=== PATIENT | male | born 1995 | race Caucasian/White ===

== ENCOUNTER 2017-06-26 17:20 | Emergency (ER) | payer SELFPAY ==
[2017-06-26 17:21] VITALS: BP 168/93; PULSE 106; RESP 12; TEMP 98.2; O2SAT 100
--- NOTE | 2017-06-26 17:51 | PD ---
HPI Chief Complaint: Lump, Cyst, Hernia Time Seen by Provider: 17:50 Travel History International Travel<30 days: No Contact w/Intl Traveler<30days: No Traveled to known affect area: No History of Present Illness HPI 21-year-old male who recently moved from was constant presents requesting a cyst on his scalp to be removed. He reports that it has been present for 3 months. It is mildly tender to palpation. Denies drainage, trauma, fevers or chills. No other complaints. History Social History Alcohol Use: Yes Tobacco Use: Yes Review of Systems General / Constitutional: No: Fever, Chills Skin: Positive Other (scalp soft tissue swelling) Physical Exam Narrative GENERAL: Well-nourished male in no acute distress SKIN: Warm and dry. There is a 1 cm small cystic lesion on the left occipital scalp which is not tender or erythematous HEAD: Atraumatic. Normocephalic. EYES: Pupils equal and round. No scleral icterus. No injection or drainage. ENT: No nasal bleeding or discharge. Mucous membranes pink and moist. NECK: Trachea midline. No JVD. Data Data Last Documented VS Vital Signs Date Time Temp Pulse Resp B/P (MAP) Pulse Ox O2 Delivery O2 Flow Rate FiO2 06/26/17 17:21 98.2 106 12 168/93 (118) 100 MDM Medical Screen Exam Complete: Yes Emergency Medical Condition: No Narrative Course A medical screening exam was performed: At the time of evaluation the presenting medical condition was determined not to be of an emergent nature. The patient was given the option of receiving additional care, but declined. Patient was given options for additional community resources from which to obtain care. The Patient Has Been advised to seek medical attention for their presenting complaint. The patient has been advised to return to the ER at any time if an emergent condition develops. Primary Impression: Encounter for medical screening examination Martinez Saab Jun 26, 2017 17:51
== END 2017-06-26 18:00 | disposition left against medical advice (07) ==
LOC: NEPK 17:20
DX: L72.8 Other follicular cysts of the skin and subcutaneous tissue (principal)
CPT/HCPCS: 99281

== ENCOUNTER 2017-09-06 21:25 | Emergency (ER) | payer SELFPAY ==
[~2017-09-06] VITALS: Ht 175.3 cm; Wt 77.3 kg
[2017-09-06 21:27] VITALS: BP 146/80; PULSE 63; RESP 16; TEMP 98.2; O2SAT 97
--- NOTE | 2017-09-06 22:20 | PD ---
HPI Chief Complaint: GI Complaint Time Seen by Provider: 22:01 Travel History International Travel<30 days: No Contact w/Intl Traveler<30days: No Traveled to known affect area: No History of Present Illness HPI 21-year-old otherwise healthy male presents to the emergency room for evaluation of fever, chills, nausea, vomiting, and diarrhea for the past 5 days. He has not actually taken his temperature but states he feels freezing and at the same time his swelling. Patient states she has not been able to keep anything down, even small sips of water and Gatorade. He denies any abdominal pain, chest pain, or shortness of breath. He has associated cough and sore throat. Occasionally he sees blood in his vomit. This morning he coughed up a large chunk of bloody sputum. [facility] Social History Alcohol Use: Yes Tobacco Use: Yes Allergies-Medications (Allergen,Severity, Reaction): Coded Allergies: No Known Allergies (Unverified , 09/06/17) Reported Meds & Prescriptions Reported Meds & Active Scripts Active No Active Prescriptions or Reported Medications Review of Systems Except as stated in HPI: all other systems reviewed are Neg Physical Exam Narrative GENERAL: Well-nourished, well-developed male in no acute distress. Afebrile. Ambulatory. SKIN: Focused skin assessment warm/dry. HEAD: Normocephalic. EYES: No scleral icterus. No injection or drainage. ENT: Mucosa pink and moist. Significant erythema of the pharynx without edema or exudates. No uvular edema. No uvular, palatal, or tonsillar deviation. Airway patent. Nasal turbinates appear normal without nasal blood, purulent drainage or septal hematoma. NECK: Supple, trachea midline. No JVD or lymphadenopathy. CARDIOVASCULAR: Regular rate and rhythm without murmurs, gallops, or rubs. RESPIRATORY: Breath sounds equal bilaterally. No accessory muscle use. GASTROINTESTINAL: Abdomen soft, non-tender, nondistended. Data Data Last Documented VS Vital Signs Date Time Temp Pulse Resp B/P (MAP) Pulse Ox O2 Delivery O2 Flow Rate FiO2 09/06/17 21:27 98.2 63 16 146/80 (102) 97 Room Air Orders Orders Chest, Pa & Lat (09/06/17 ) Influenzae A/B Antigen (09/06/17 22:16) Group A Rapid Strep Screen (09/06/17 22:16) Sodium Chlor 0.9% 1000 Ml Inj (Ns 1000 M (09/06/17 22:30) Ondansetron Inj (Zofran Inj) (09/06/17 22:30) Complete Blood Count With Diff (09/06/17 22:16) Comprehensive Metabolic Panel (09/06/17 22:16) Labs Laboratory Tests Test 09/06/17 22:20 White Blood Count 6.7 TH/MM3 Red Blood Count 5.48 MIL/MM3 Hemoglobin 16.1 GM/DL Hematocrit 46.7 % Mean Corpuscular Volume 85.3 FL Mean Corpuscular Hemoglobin 29.4 PG Mean Corpuscular Hemoglobin Concent 34.4 % Red Cell Distribution Width 12.6 % Platelet Count 191 TH/MM3 Mean Platelet Volume 7.9 FL Neutrophils (%) (Auto) 65.1 % Lymphocytes (%) (Auto) 21.8 % Monocytes (%) (Auto) 12.8 % Eosinophils (%) (Auto) 0.0 % Basophils (%) (Auto) 0.3 % Neutrophils # (Auto) 4.4 TH/MM3 Lymphocytes # (Auto) 1.5 TH/MM3 Monocytes # (Auto) 0.9 TH/MM3 Eosinophils # (Auto) 0.0 TH/MM3 Basophils # (Auto) 0.0 TH/MM3 CBC Comment DIFF FINAL Differential Comment MDM Medical Decision Making Medical Screen Exam Complete: Yes Emergency Medical Condition: Yes Medical Record Reviewed: Yes Differential Diagnosis URI, pneumonia, influenza, Janell-Martinez tear, gastroenteritis, dehydration, electrolyte abnormality Narrative Course 21-year-old male presents to the emergency room for evaluation of nausea, vomiting, diarrhea, cough, sore throat, and subjective fevers for the past 5 days. Patient is afebrile and well-appearing in the emergency room. Vital signs stable. Abdomen is soft, nontender. IV access established and basic labs obtained. He was given 1 L of fluids and Zofran. CBC is unremarkable. Chest x-ray is negative. CMP, influenza, and rapid strep are ordered and pending. Patient signed out the nighttime provider pending results. Scripts No Active Prescriptions or Reported Meds Condition: Stable Debby Silverio Sep 06, 2017 22:20
[2017-09-06] MEDS ORDERED: ONDANSETRON HCL 4 MG/2 ML VIAL IV PUSH ONE (22:30)
[2017-09-06] MEDS ORDERED: SODIUM CHLOR 0.9% 1000 ML INJ 1,000 ML IV ONE (22:30)
[2017-09-06 22:43] LABS: AUTOMATED NEUTROPHIL # 4.4 TH/MM3 (1.8-7.7); BASOPHIL % 0.3 % (0.0-2.0); HEMATOCRIT 46.7 % (39.0-51.0); HEMOGLOBIN 16.1 GM/DL (13.0-17.0); LYMPH % 21.8 % (9.0-44.0); LYMPHOCYTE # 1.5 TH/MM3 (1.0-4.8); MEAN CELL VOLUME 85.3 FL (80.0-100.0); MEAN CORPUSCULAR HEMOGLOBIN 29.4 PG (27.0-34.0); MEAN CORPUSCULAR HGB CONC 34.4 % (32.0-36.0); MEAN PLATELET VOLUME 7.9 FL (7.0-11.0); MONO % 12.8 % (0.0-8.0); MONOCYTE # 0.9 TH/MM3 (0-0.9); NEUT % 65.1 % (16.0-70.0); PLATELET COUNT 191 TH/MM3 (150-450); RED BLOOD COUNT 5.48 MIL/MM3 (4.50-5.90); RED CELL DISTRIBUTION WIDTH 12.6 % (11.6-17.2); WHITE BLOOD COUNT 6.7 TH/MM3 (4.0-11.0)
--- NOTE | 2017-09-06 22:43 | RADRPT ---
EXAM DATE/TIME: 09/06/2017 22:34 [facility] COMPARISON: No previous studies available for comparison. INDICATIONS : Cough, fever, fatigue, shortness of breath for 3 days MEDICAL HISTORY : Smoker SURGICAL HISTORY : None. ENCOUNTER: Initial ACUITY: 3 days PAIN SCORE: 0/10 LOCATION: Bilateral chest FINDINGS: PA and lateral views of the chest demonstrate the lungs to be symmetrically aerated without evidence of mass, infiltrate or effusion. The cardiomediastinal contours are unremarkable. Osseous structure s are intact. CONCLUSION: Normal examination. Sudhir Armstrong Jr., MD on September 06, 2017 at 22:41 Board Certified Radiologist. This report was verified electronically.
[2017-09-06 23:05] LABS: AST (GOT) 17 U/L (15-39); BICARBONATE 21.1 MEQ/L (21.0-32.0); BLOOD UREA NITROGEN 17 MG/DL (7-18); CALCIUM 8.8 MG/DL (8.5-10.1); CHLORIDE 105 MEQ/L (98-107); GLOMERULAR FILTRATION RATE 71 ML/MIN (>89); GLUCOSE,RANDOM 75 MG/DL (74-106); SODIUM (NA) 137 MEQ/L (136-145)
[2017-09-06 23:07] LABS: ALKALINE PHOSPHATASE 53 U/L (45-117); ALT (GPT) 20 U/L (9-52); TOTAL BILIRUBIN ADULT 0.5 MG/DL (0.2-1.0)
--- NOTE | 2017-09-07 01:07 | PD ---
Physical Exam Narrative I, Dr. Dobbins, have reviewed the advance practice practitioner's documentation and am in agreement, met with the patient face to face, made the diagnosis, and the medical decision making was done by me. *My assessment and Findings: Gastroenteritis vs. viral syndrome 21yo well appearing male here with c/o feeling sick for a few days. Said he has been vomiting and having diarrhea for 3 days. +Rhinorrhea, nasal congestion and throat pain. Denies any chest pain, sob, abdominal pain. Labs reviewed, no leukocytosis. CMP unremarkable. CXR normal. Negative influenza, negative group A strep. Pt given zofran and NS IVF. Pt reevaluated at bedside and feels better. Pt tolerating PO. Abdomen soft, NT/ND. Return precautions given. Data Data Last Documented VS Vital Signs Date Time Temp Pulse Resp B/P (MAP) Pulse Ox O2 Delivery O2 Flow Rate FiO2 09/06/17 21:27 98.2 63 16 146/80 (102) 97 Room Air Orders Orders Chest, Pa & Lat (09/06/17 ) Influenzae A/B Antigen (09/06/17 22:16) Group A Rapid Strep Screen (09/06/17 22:16) Sodium Chlor 0.9% 1000 Ml Inj (Ns 1000 M (09/06/17 22:30) Ondansetron Inj (Zofran Inj) (09/06/17 22:30) Complete Blood Count With Diff (09/06/17 22:16) Comprehensive Metabolic Panel (09/06/17 22:16) Strep Culture (Group A) (09/06/17 22:20) Labs Laboratory Tests Test 09/06/17 22:20 White Blood Count 6.7 TH/MM3 Red Blood Count 5.48 MIL/MM3 Hemoglobin 16.1 GM/DL Hematocrit 46.7 % Mean Corpuscular Volume 85.3 FL Mean Corpuscular Hemoglobin 29.4 PG Mean Corpuscular Hemoglobin Concent 34.4 % Red Cell Distribution Width 12.6 % Platelet Count 191 TH/MM3 Mean Platelet Volume 7.9 FL Neutrophils (%) (Auto) 65.1 % Lymphocytes (%) (Auto) 21.8 % Monocytes (%) (Auto) 12.8 % Eosinophils (%) (Auto) 0.0 % Basophils (%) (Auto) 0.3 % Neutrophils # (Auto) 4.4 TH/MM3 Lymphocytes # (Auto) 1.5 TH/MM3 Monocytes # (Auto) 0.9 TH/MM3 Eosinophils # (Auto) 0.0 TH/MM3 Basophils # (Auto) 0.0 TH/MM3 CBC Comment DIFF FINAL Differential Comment Blood Urea Nitrogen 17 MG/DL Creatinine 1.30 MG/DL Random Glucose 75 MG/DL Total Protein 8.0 GM/DL Albumin 4.0 GM/DL Calcium Level 8.8 MG/DL Alkaline Phosphatase 53 U/L Aspartate Amino Transf (AST/SGOT) 17 U/L Alanine Aminotransferase (ALT/SGPT) 20 U/L Total Bilirubin 0.5 MG/DL Sodium Level 137 MEQ/L Potassium Level 3.6 MEQ/L Chloride Level 105 MEQ/L Carbon Dioxide Level 21.1 MEQ/L Anion Gap 11 MEQ/L Estimat Glomerular Filtration Rate 71 ML/MIN MDM Supervised Visit with NEGRITO: Yes Diagnosis Primary Impression: Viral syndrome Patient Instructions: General Instructions Departure Forms: Tests/Procedures Additional Instruction: Please follow up with your primary care physician in 2-3 days. Return to the ED if symptoms worsen. Med/Other Pt SpecificInfo: No Change to Meds Scripts No Active Prescriptions or Reported Meds Disposition: 01 DISCHARGE HOME Condition: Stable Pilar Dobbins DO Sep 07, 2017 01:07
== END 2017-09-07 01:56 | disposition home or self-care (01) ==
LOC: NEPE 21:25
DX: B34.9 Viral infection, unspecified (principal); Z72.0 Tobacco use
CPT/HCPCS: 71046; 80053; 85025; 87081; 87804; 87880; 96374; 99284; J2405; J7030